=== PATIENT | female | born 1960 | race Caucasian/White ===

== ENCOUNTER 2018-06-13 10:10 | Inpatient (IN) ==
[2018-06-13 12:14] LABS: ALB/GLOB RATIO 1.2; ALBUMIN 3.8 g/dL (3.5-5.0); DIRECT BILIRUBIN 0.2 mg/dL (0.00-0.20); TOTAL BILIRUBIN 0.65 mg/dL (0.20-1.00); TOTAL PROTEIN 6.9 g/dL (6.3-8.3)
[2018-06-13] MEDS: SODIUM CHLORIDE 0.9% INJ SCH (12:30)
[2018-06-13] MEDS: PROTONIX IV SCH (12:30)
[2018-06-13] MEDS: DILAUDID IV PRN ×2 (12:30→19:07)
[2018-06-13] MEDS: NS 1,000 ML IV SCH (12:31)
[2018-06-13] MEDS: METRONIDAZOLE IV SCH ×2 (12:31→17:35)
[2018-06-13] MEDS: SODIUM CHLORIDE IV SCH ×2 (12:31→17:35)
[2018-06-13] MEDS: SODIUM CHLORIDE 0.9% INJ PRN ×2 (12:59→20:10)
[2018-06-13] MEDS: PHENERGAN IV PRN ×2 (12:59→20:10)
[2018-06-13] MEDS: LOVENOX SUBQ SCH (13:26)
[2018-06-13 13:33] LABS: AGAP 16; BUN 12 mg/dL (8-22); CALCIUM 9.4 mg/dL (8.8-10.2); CHLORIDE 99 mmol/L (98-107); COSMO 276; CREATININE 0.5 mg/dL (0.5-0.9); ESTIMATED GFR > 60; GLUCOSE 106 mg/dL (70-104); POTASSIUM 3.4 mmol/L (3.5-5.1); SODIUM 138 mmol/L (136-145); TCO2 23 mmol/L (25-35)
[2018-06-13] MEDS: LEVAQUIN 500 MG/D5W 500 MG/100 ML IVPB IV SCH (14:18)
--- NOTE | 2018-06-13 14:22 | HISTORY AND PHYSICAL ---
HISTORY OF PRESENT ILLNESS: Ms. Faulkner is a 58-year-old white female, a patient of Dr. Donato, who was seen at [facility] this morning for severe constipation and abdominal pain. She has a history of diverticulosis, and she is very tender. The pain started early this morning, and she has been diagnosed tentatively with diverticulitis by Jayjay, the nurse practitioner at [facility], and she was hospitalized. She had history of surgery for ovarian cyst, partial hysterectomy. She was seen by Dr. Fierro who told her about 6 months ago that she had severe diverticulosis. Ms. Faulkner has hypertension for last is 30 years. SOCIAL HISTORY: She has been a chronic smoker, smokes about a pack of cigarettes per day for the last 30 years. She does not drink. ALLERGIES: She is not allergic to any medications. REVIEW OF SYSTEMS: Other than severe abdominal pain and constipation, she denies history of vomiting, nausea, or diarrhea or rectal bleeding.Genitourinary: Negative. Endocrine: Negative. Breast: Negative. Neurological: Unremarkable. PHYSICAL EXAMINATION: VITAL SIGNS: Reveal temperature normal, pulse 88 per minute, respiratory rate 20 per minute, blood pressure 136/80. HEENT: Head normocephalic. Pupils: PERRLA. Fundus examination not done. ENT examination unremarkable NECK: Supple. JVP normal. LYMPHATIC: There is no evidence of lymphadenopathy, thyroid enlargement, pedal edema, calf tenderness, anemia, cyanosis, or clubbing. Pedal pulses well felt. BREAST: Normal chest. Normal inspection. LUNGS: Clear on auscultation. ABDOMEN: Nondistended ther is no evidence of guarding, rigidity, free fluid, masses. There is diffuse tenderness across the abdomen, especially on the left side and in the upper abdomen. No guarding, rigidity noted. RECTAL: Exam deferred. CENTRAL NERVOUS SYSTEM: Higher functions normal. Cranial nerves normal. Motor and sensory system examination unremarkable. Deep tendon reflexes normal. Plantars downgoing. Skull and spine examination normal for age. No cerebellar signs or signs of meningeal irritation on locomotor exam. SKIN: Exam unremarkable. CLINICAL IMPRESSION: Severe constipation and abdominal pain. Patient has acute diverticulitis. PLAN: To continue with the current management with IV Flagyl as well as Levaquin. We will continue to watch her closely. cc: MD Dewayne Mansfield MD [facility] MED[facility] CENTERTraci
--- NOTE | 2018-06-13 18:05 | Diag Imaging Result Doc PS360 ---
CT ABD/PELVIS W/IV CONT ONLY - 06/13/2018 INDICATION: Abdominal pain COMPARISON: 01/21/2018 FINDINGS: There is persistent or recurrent focal inflammation at the distalmost sigmoid colon. There is wall thickening here as well. There are numerous diverticula throughout the colon diffusely worst at the sigmoid. There is moderate constipation. No small bowel obstruction. Trace pelvic free fluid. No free air. Aside from a renal cyst, the abdominal organs are all normal. Uterus is absent. Urinary bladder and rectum are normal. There are moderate degenerative changes of the spine. No acute or suspicious bony lesion. IMPRESSION: Severe persistent or recurrent inflammation with wall thickening at the sigmoid colon. There is also severe constipation. This may represent diverticulitis or colon cancer. Recommend treatment and follow-up colonoscopy when the patient is better. This exam was performed using automated exposure control, adjustment of mA or kV according to patient size, and/or use of iterative reconstruction technique Electronically signed by Jah Rangel 06/13/2018 6:02 PM
[2018-06-13] MEDS ORDERED: ISOPTIN SR PO SCH (21:00)
[2018-06-13] MEDS: KLOR-CON POWDER PACKET PO SCH (21:22)
[2018-06-14] MEDS: NS 1,000 ML IV SCH ×3 (02:52→17:00)
[2018-06-14] MEDS: METRONIDAZOLE IV SCH ×4 (02:52→19:53)
[2018-06-14] MEDS: SODIUM CHLORIDE IV SCH ×4 (02:52→19:53)
[2018-06-14 06:31] LABS: BASO# 0.03 X1000 (0.0-0.2); BASO% 0.3 % (0.0-0.8); EOS# 0.11 X1000 (0.0-0.7); EOS% 1.2 % (0.0-10.0); HEMATOCRIT 35.5 % (37.0-47.0); HEMOGLOBIN 11.4 g/dL (12.0-16.0); LYMPH% 23.8 % (20.5-51.1); MCH 29.5 PG (27-31); MCHC 32.1 g/dL (33-37); MCV 91.7 FL (81-99); MONO# 0.87 X1000 (0.11-0.59); MONO% 9.4 % (1.7-9.3); MPV 10.2 FL (7.4-10.4); NEUT# 6.02 X1000 (1.4-6.5); NEUT% 65.3 % (42.2-75.2); PLT 357 X1000 (130-400); RBC 3.87 XMIL (4.2-5.4); RDW 13.3 % (11.5-14.5); WBC 9.23 X1000 (4.8-10.8)
[2018-06-14 07:02] LABS: AGAP 12; BUN 10 mg/dL (8-22); CALCIUM 8.6 mg/dL (8.8-10.2); CHLORIDE 105 mmol/L (98-107); COSMO 278; CREATININE 0.5 mg/dL (0.5-0.9); ESTIMATED GFR > 60; GLUCOSE 88 mg/dL (70-104); POTASSIUM 3.4 mmol/L (3.5-5.1); SODIUM 140 mmol/L (136-145); TCO2 23 mmol/L (25-35)
[2018-06-14] MEDS: PROTONIX IV SCH ×2 (09:16→17:27)
[2018-06-14] MEDS: HYDROCHLOROTHIAZIDE PO SCH (09:17)
[2018-06-14] MEDS: KLOR-CON POWDER PACKET PO SCH ×2 (09:17→21:41)
[2018-06-14] MEDS: MOBIC PO SCH (09:20)
[2018-06-14] MEDS: LOPRESSOR PO SCH ×2 (09:34→21:41)
[2018-06-14] MEDS: LOVENOX SUBQ SCH (12:03)
[2018-06-14] MEDS: POTASSIUM CHLORIDE 20 MEQ/SWI 20 MEQ/100 ML IVPB IV SCH ×2 (12:03→16:07)
[2018-06-14] MEDS: MILK OF MAGNESIA PO PRN (21:41)
[2018-06-14] MEDS: LEVAQUIN 500 MG/D5W 500 MG/100 ML IVPB IV SCH (21:41)
--- NOTE | 2018-06-14 22:19 | PROGRESS NOTE ---
DATE: 06/14/2018 SUBJECTIVE: A 58-year-old, white female admitted to the hospital on 06/03/2018 with abdominal pain on the left side associated with leukocytosis. CT findings were concerned about thickening of sigmoid colon. The patient is still in a lot of pain and constipation. REVIEW OF SYSTEMS: Reviewed. PAST MEDICAL HISTORY: Reviewed. PAST SURGICAL HISTORY: Reviewed. MEDICINES: Reviewed. ALLERGIES: Not known. OBJECTIVE: Vital signs: Temperature is 97.9 degrees, pulse is 65, blood pressure is 126/70, 94% on room air. HEENT Exam: Within normal limits. Neck: Supple. Chest: Clear. Cardiovascular: Heart sounds are regular. Abdomen: Belly is soft, tender in the left side. Neurologic: No neurological deficits. INVESTIGATIONS: CBC: White cell count 9.2, hematocrit 35, platelets 357,000. SMA 7: Potassium 3.4. CT findings were reviewed. Severe constipation. ASSESSMENT AND PLAN: 1. Sigmoid diverticulitis second episode. Continue on Levaquin and Flagyl. 2. IV fluids. 3. Hypokalemia. Replace the potassium. 4. Constipation. Patient is taking Colace and MiraLAX. Discontinue verapamil for blood pressure, changing it to metoprolol and DVT prophylaxis with Lovenox. 5. Gastrointestinal prophylaxis with IV Protonix and follow up on the labs in the morning and patient did have colonoscopy by Dr. Fierro last year, which is stable. We will review the reports and will follow up. LEVEL OF DOCUMENTATION: 35 minutes. cc: Dewayne Donato MD
[2018-06-15] MEDS: METRONIDAZOLE IV SCH ×3 (03:21→20:11)
[2018-06-15] MEDS: SODIUM CHLORIDE IV SCH ×3 (03:21→20:11)
[2018-06-15 06:18] LABS: BASO# 0.05 X1000 (0.0-0.2); BASO% 0.6 % (0.0-0.8); EOS# 0.27 X1000 (0.0-0.7); EOS% 3.1 % (0.0-10.0); HEMATOCRIT 36.5 % (37.0-47.0); HEMOGLOBIN 11.7 g/dL (12.0-16.0); LYMPH# 2.55 X1000 (1.2-3.4); LYMPH% 29.1 % (20.5-51.1); MCH 29.4 PG (27-31); MCHC 32.1 g/dL (33-37); MCV 91.7 FL (81-99); MONO# 0.79 X1000 (0.11-0.59); NEUT# 5.09 X1000 (1.4-6.5); NEUT% 58.2 % (42.2-75.2); PLT 388 X1000 (130-400); RBC 3.98 XMIL (4.2-5.4); WBC 8.75 X1000 (4.8-10.8)
[2018-06-15 06:44] LABS: AGAP 11; BUN 11 mg/dL (8-22); CALCIUM 8.3 mg/dL (8.8-10.2); CHLORIDE 105 mmol/L (98-107); COSMO 279; CREATININE 0.4 mg/dL (0.5-0.9); ESTIMATED GFR > 60; GLUCOSE 96 mg/dL (70-104); POTASSIUM 4.3 mmol/L (3.5-5.1); SODIUM 140 mmol/L (136-145); TCO2 24 mmol/L (25-35)
[2018-06-15] MEDS: KLOR-CON POWDER PACKET PO SCH ×2 (08:39→21:13)
[2018-06-15] MEDS: HYDROCHLOROTHIAZIDE PO SCH (08:40)
[2018-06-15] MEDS: LOPRESSOR PO SCH ×2 (08:40→21:13)
[2018-06-15] MEDS: PROTONIX IV SCH ×2 (08:41→11:30)
[2018-06-15] MEDS: MOBIC PO SCH (08:41)
[2018-06-15] MEDS: NS 1,000 ML IV SCH ×2 (08:48→11:32)
--- NOTE | 2018-06-15 09:38 | Diag Imaging Result Doc PS360 ---
EXAM: ABDOMEN FLAT/UPRIGHT 06/15/2018 HISTORY: pain TECHNIQUE: Flat and upright abdomen COMMENT: The bowel gas pattern is unremarkable. There is no evidence of organomegaly or mass. Compared to 01/21/2018 there is generally less small bowel gas. IMPRESSION: Nonspecific abdomen. Electronically signed by Jag Mccain 06/15/2018 9:36 AM
[2018-06-15] MEDS: LOVENOX SUBQ SCH (11:31)
--- NOTE | 2018-06-15 20:56 | PROGRESS NOTE ---
DATE: 06/15/2018 SUBJECT: Patient is still hurting on the left side. EXAM: Temperature is 98 degrees, blood pressure slightly running high.HEENT: Within normal limits. Neck: Supple. Chest: Clear. Heart: Sounds are regular. Belly: Is soft. Tender in the left side. No neurological deficits. INVESTIGATIONS: CBC is normal. SMA 7 was normal. Follow up on KUB improving the constipation. ASSESSMENT AND PLAN: 1. Recurrent diverticulitis. If no better consider surgical consult. Previous colonoscopy is negative by Dr. Fierro. Repeat the labs in the morning. Continue on IV fluids, IV antibiotics. 2. Hypertension. Change the verapamil to metoprolol 50 p.o. b.i.d. Discussed the plan of care with the family at bedside and will follow up on the clinical exam . LEVEL OF DOCUMENTATION: 25 minutes. cc: Dewayne Donato MD MTDD
[2018-06-15] MEDS: MILK OF MAGNESIA PO PRN (21:13)
[2018-06-15] MEDS: LEVAQUIN 500 MG/D5W 500 MG/100 ML IVPB IV SCH (21:13)
[2018-06-16] MEDS: METRONIDAZOLE IV SCH ×3 (04:37→20:31)
[2018-06-16] MEDS: SODIUM CHLORIDE IV SCH ×3 (04:37→20:31)
[2018-06-16 06:31] LABS: BASO# 0.06 X1000 (0.0-0.2); BASO% 0.8 % (0.0-0.8); EOS# 0.31 X1000 (0.0-0.7); EOS% 3.9 % (0.0-10.0); HEMATOCRIT 38.1 % (37.0-47.0); HEMOGLOBIN 12.1 g/dL (12.0-16.0); LYMPH# 2.35 X1000 (1.2-3.4); LYMPH% 29.8 % (20.5-51.1); MCHC 31.8 g/dL (33-37); MCV 91.4 FL (81-99); MONO# 0.71 X1000 (0.11-0.59); MPV 9.9 FL (7.4-10.4); NEUT# 4.46 X1000 (1.4-6.5); NEUT% 56.5 % (42.2-75.2); PLT 396 X1000 (130-400); RBC 4.17 XMIL (4.2-5.4); RDW 12.9 % (11.5-14.5); WBC 7.89 X1000 (4.8-10.8)
[2018-06-16 07:10] LABS: AGAP 9; BUN 8 mg/dL (8-22); CALCIUM 8.6 mg/dL (8.8-10.2); CHLORIDE 105 mmol/L (98-107); COSMO 278; CREATININE 0.5 mg/dL (0.5-0.9); ESTIMATED GFR > 60; GLUCOSE 101 mg/dL (70-104); POTASSIUM 4.2 mmol/L (3.5-5.1); SODIUM 140 mmol/L (136-145); TCO2 26 mmol/L (25-35)
[2018-06-16] MEDS: PROTONIX IV SCH ×2 (08:39→11:16)
[2018-06-16] MEDS: LOPRESSOR PO SCH ×2 (08:39→20:31)
[2018-06-16] MEDS: MOBIC PO SCH (08:39)
[2018-06-16] MEDS: HYDROCHLOROTHIAZIDE PO SCH (08:39)
[2018-06-16] MEDS: KLOR-CON POWDER PACKET PO SCH ×2 (08:40→20:32)
[2018-06-16] MEDS: SODIUM CHLORIDE 0.9% INJ SCH (08:40)
[2018-06-16] MEDS: NS 1,000 ML IV SCH ×2 (13:45→18:39)
[2018-06-16] MEDS: LOVENOX SUBQ SCH (13:45)
[2018-06-16] MEDS: DILAUDID IV PRN (18:18)
--- NOTE | 2018-06-16 18:34 | GENERAL SURGERY CONSULTATION ---
DATE: 06/16/2018 HISTORY OF PRESENT ILLNESS: This is a 58-year-old female, who was admitted to Dr. Donato's service with diverticulitis. She apparently had an episode back before the end of last year that was treated and recovered from this and was relatively asymptomatic in the meantime. She struggles with constipation most of her life. Takes stool softeners and laxatives for this. She presented now with left lower quadrant abdominal pain. Her symptoms have improved with IV antibiotics. She did not have much of an appetite. Bowel function has been normal otherwise. She has had a colonoscopy recently about 6 months ago with severe diverticulosis but no mucosal lesions. MEDICAL HISTORY: History of smoking. SURGICAL HISTORY: She has had a partial hysterectomy and a cystectomy of her ovary. REVIEW OF SYSTEMS: Ten point negative. FAMILY HISTORY: Negative for colon cancer. MEDICATIONS: Negative for anticoagulants. PHYSICAL EXAM: Vital Signs: Temperature 98.6, pulse 63, blood pressure 175/95, oxygen saturation 97%. General: She is alert. HEENT: No scleral icterus. No cervical mass. Cardiovascular: Normal rate. Pulmonary: No increased work of breathing. Abdomen: Soft. Tenderness in the left lower quadrant, but no peritonitis. Integument: Warm and dry. Psychiatric: Appropriate affect. Neurologic: No gross deficits. LABS: Have been reviewed. White count normal at 7, hematocrit 38, platelets 396. Creatinine 0.5. I have also seen her CT scan. She has sigmoid diverticulitis with no abscess or evidence of perforation. ASSESSMENT AND PLAN: A 58-year-old female with uncomplicated diverticulitis. Has been at least her second episode. I will allow her to continue antibiotics and bowel rest for this. If she resolves, we can follow her as an outpatient. If she remains somewhat symptomatic or has another episode we could consider elective sigmoid colectomy. Her risk of ostomy would be very high operating in the emergent urgent setting with ongoing inflammation. Hopefully, we can allow this to cool down and plan for a more elective procedure. I discussed with the patient. We will follow along while she is here. cc: MD Dewayne Beltran MD
[2018-06-16] MEDS: PHENERGAN IV PRN (20:27)
[2018-06-16] MEDS: LEVAQUIN 500 MG/D5W 500 MG/100 ML IVPB IV SCH (21:04)
--- NOTE | 2018-06-16 21:44 | PROGRESS NOTE ---
DATE: 06/16/2018 SUBJECTIVE: The patient is still in a little pain, slowly improving. OBJECTIVE: Vital signs: Temperature is 97 degrees, pulse 64. Vitals are stable. HEENT Exam: Within normal limits. Neck: Supple. No lymphadenopathy. Chest: Clear. Cardiovascular: Heart sounds are regular. Abdomen: Belly is soft, nontender. Good bowel sounds. Slightly tender. ASSESSMENT AND PLAN: 1. Recurrent sigmoid diverticulitis, slowly improving. Discussed with the patient, needs a surgical consult with Dr. Patrick. We will discontinue the pain medicines and continue IV antibiotics. Previous colonoscopy is unremarkable. We will follow up and if stable, we will discharge home in the morning after surgical consult. 2. Hypertension, currently. Watch on beta blockers and diuretics. Discontinued verapamil that is causing constipation. LEVEL OF DOCUMENTATION: 25 minutes. cc: Dewayne Donato MD
[2018-06-17] MEDS: NS 1,000 ML IV SCH (03:58)
[2018-06-17] MEDS: METRONIDAZOLE IV SCH (04:03)
[2018-06-17] MEDS: SODIUM CHLORIDE IV SCH (04:03)
[2018-06-17 07:29] VITALS: BP 160/85
[2018-06-17] MEDS: MOBIC PO SCH (09:01)
[2018-06-17] MEDS: HYDROCHLOROTHIAZIDE PO SCH (09:01)
[2018-06-17] MEDS: SODIUM CHLORIDE 0.9% INJ SCH (09:01)
[2018-06-17] MEDS: PROTONIX IV SCH (09:01)
[2018-06-17] MEDS: LOPRESSOR PO SCH (09:01)
[2018-06-17] MEDS: KLOR-CON POWDER PACKET PO SCH (09:08)
--- NOTE | 2018-06-19 08:30 | DISCHARGE SUMMARY ---
ADMISSION DATE: 06/13/2018 DISCHARGE DATE: 06/17/2018 DISCHARGING DIAGNOSIS: Acute abdominal pain due to sigmoid diverticulitis, recurrent. SECONDARY DIAGNOSES: 1. Migraine headaches. 2. Hypertension. 3. Osteoarthritis. 4. Acid reflux disease. CONSULTATIONS: Dr. Adam Patrick. BRIEF HISTORY: Please see the H and P that was done by Dr. Fierro. In brief, she is a 58-year-old white female with a known history of diverticulosis and second episode of diverticulitis, seen by Dr. Fierro with normal colonoscopy a few months ago. Came in with acute abdominal pain associated with a fever and leukocytosis. White cell count 15,000. HOSPITAL COURSE: Patient was given IV fluids and IV antibiotics with Levaquin and Flagyl. Followup clinical course was uneventful except hypokalemia. Replaced the potassium. The patient was seen by Dr. Patrick. The rest of the hospital course was uneventful. The patient is also constipated and I discontinued verapamil; that is one of the side effects. Changed to the beta blockers for the blood pressure control. At the time of discharge, patient is stable. LABORATORY DATA: CBC: White cell count 7.8, hematocrit 38, platelets 396,000. Sodium 140, potassium 4.2, chloride 105, BUN 8, creatinine 0.5, glucose 101. Liver function tests were normal. CT scan of the abdomen and pelvis: Severe persistent recurrent inflammation with wall thickening of the sigmoid colon, severe constipation, and diverticulitis. DISCHARGE INSTRUCTIONS: 1. Tramadol 50 p.o. b.i.d. 2. Discontinue verapamil. 3. Mobic 7.5 daily. 4. Potassium 20 mEq p.o. b.i.d. 5. Hydrochlorothiazide 50 daily. 6. Prilosec 20 daily. 7. Coreg 12.5 p.o. b.i.d. 8. MiraLAX 17 g daily. 9. Flagyl 500 t.i.d. for 7 days. 10. Probiotics 1 tablet daily. 11. Follow up in my office in 2 weeks as well as Dr. Patrick. cc: MD Moon Sibley MD Manish Arora, MD
== END 2018-06-17 09:54 | disposition home or self-care (01) | DRG 392 ==
LOC: DIRADM → OBSVTOIN 10:10 → 4N 11:11
PROVIDERS: ADMIT Internal Medicine; ATTEND Internal Medicine
CPT/HCPCS: 74019; 74020; 74177; 80048; 80076; 83690; 85025; 96365; 96366; 96367; 96372; 96375; 96376; A9270; C9113; G0378; J1170; J1650; J1956; J2550; J3480; J7030; Q9967; S0030; S0164

== ENCOUNTER 2018-11-25 13:02 | Observation (INO) ==
[2018-11-25] MEDS ORDERED: APRESOLINE IV PRN (13:51)
--- NOTE | 2018-11-25 14:15 | Diag Imaging Result Doc PS360 ---
EXAM: CHEST-2 VIEWS HISTORY: SOB TECHNIQUE: Chest two views COMPARISON: 07/01/2016 FINDINGS: The lungs are well expanded. The heart is not enlarged. The vessels are not distended. There are no infiltrates. No pleural effusions. There has been prior surgery to the lower neck. IMPRESSION: No acute abnormality. Electronically signed by Pepe Shetty 11/25/2018 2:12 PM
[2018-11-25 15:33] LABS: BASO# 0.07 X1000 (0.0-0.2); BASO% 0.8 % (0.0-0.8); EOS% 2.2 % (0.0-10.0); HEMATOCRIT 42.8 % (37.0-47.0); HEMOGLOBIN 14.2 g/dL (12.0-16.0); LYMPH# 2.75 X1000 (1.2-3.4); LYMPH% 29.6 % (20.5-51.1); MCH 29.6 PG (27-31); MCHC 33.2 g/dL (33-37); MCV 89.2 FL (81-99); MONO# 0.51 X1000 (0.11-0.59); MONO% 5.5 % (1.7-9.3); MPV 9.8 FL (7.4-10.4); NEUT# 5.75 X1000 (1.4-6.5); NEUT% 61.9 % (42.2-75.2); PLT 421 X1000 (130-400); RDW 12.9 % (11.5-14.5); WBC 9.28 X1000 (4.8-10.8)
[2018-11-25 15:37] LABS: INR 0.98; PROTIME 13.1 Seconds (11.0-16.0)
[2018-11-25 15:50] LABS: AGAP 13; BUN 13 mg/dL (8-22); CHLORIDE 104 mmol/L (98-107); COSMO 285; CREATININE 0.6 mg/dL (0.5-0.9); ESTIMATED GFR > 60; GLUCOSE 101 mg/dL (70-104); MAGNESIUM 2.1 mg/dL (1.5-2.7); POTASSIUM 3.5 mmol/L (3.5-5.1); SODIUM 143 mmol/L (136-145); TCO2 26 mmol/L (25-35)
--- NOTE | 2018-11-25 20:13 | Diag Imaging Result Doc PS360 ---
CT ANGIOGRAM RENAL ARTERIES - 11/25/2018 INDICATION: Hypertension TECHNIQUE: Axial CT images were obtained after administering intravenous contrast. Three-dimensional angiographic images were generated. COMPARISON: 07/29/2018 FINDINGS: The lung bases are clear and the heart size is normal. There is a stable right renal cyst. Otherwise the kidneys enhance normally. The liver, gallbladder, spleen, pancreas, and adrenals are normal. No bowel obstruction or inflammation. There is some mild scattered vascular disease in the abdominal aorta. No aneurysm or stenosis. The renal arteries are widely patent. There is significant diverticulosis of the descending and sigmoid colon. IMPRESSION: Normal exam of the renal arteries. This exam was performed using automated exposure control, adjustment of mA or kV according to patient size, and/or use of iterative reconstruction technique Electronically signed by Jah Rangel 11/25/2018 8:11 PM
[2018-11-25] MEDS: KLOR-CON POWDER PACKET PO SCH (20:29)
[2018-11-25] MEDS: COREG PO SCH (20:30)
[2018-11-25] MEDS: COZAAR PO SCH (20:30)
--- NOTE | 2018-11-25 21:43 | HISTORY AND PHYSICAL ---
CHIEF COMPLAINT: Severe headache and elevated blood pressure since yesterday. HISTORY OF PRESENT ILLNESS: She is a 58-year-old white female, a heavy smoker, who basically came in my office with a blood pressure of 220/110 with headache. Recently, she has changed her medication to Coreg from verapamil due to diverticulitis and related to constipation. She has been doing well for the last 9 months. She works in the [employer]. They have given her some hydralazine and referred her to me this morning. The blood pressure was substantially high. EKG was unremarkable. I have given clonidine without any significant drop, and she is very symptomatic. Admitted to the hospital for observation for accelerated hypertension, rule out secondary causes. I did not hear any abdominal bruit. Rule out renal artery stenosis, rule out endocrine causes. PAST MEDICAL HISTORY: 1. Hypertension. 2. Migraine headaches. 3. Nicotine dependency. 4. Hyperlipidemia. 5. Cystocele. 6. Diverticulosis. PAST SURGICAL HISTORY: Complete hysterectomy, cystocele repair, right breast fibroadenoma excision, C-spine surgery by Dr. Rios MEDICATIONS: Coreg 12.5 p.o. b.i.d., hydrochlorothiazide 50 mg daily, potassium 20 mEq daily, Mobic as needed, Prilosec 40 mg daily. ALLERGIES: Not known. 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 She lives in [place]. Smoking: Half a pack a day for 40 years. Socially drinks alcohol. FAMILY HISTORY: Father of PA at the age of 70. Mom of heart failure at the age of 85. Coronary artery disease. REVIEW OF SYSTEMS: HEENT: Slight headache. Vision problem. No earache. No sore throat. Neck: No neck pain, no goiter. Cardiopulmonary: No chest pain, shortness of breath, PND or orthopnea. GI: Slightly nauseous, not eating well. History of diverticulosis. No altered bowel habits. No bleeding per rectum. : No history of hesitancy, frequency, dysuria. No swelling of feet. No joint pain. Neurologic: No focal symptoms or weakness. PHYSICAL EXAMINATION: VITALS: Temperature is 98. Blood pressure is now coming down, now 148/100. CHEST: Clear. HEART: Sounds are regular. ABDOMEN: Belly is soft, nontender. Good bowel sounds. EXTREMITIES: No peripheral edema or cyanosis. NEUROLOGIC: No obvious neurological deficits. INVESTIGATIONS: CBC is normal. PT/INR is normal. SMA 7 is normal. Cardiac enzymes are normal. EKG nondiagnostic, nothing for ischemia. ASSESSMENT AND PLAN: A 58-year-old white female who basically came in with accelerated hypertension for the last 2 days, very symptomatic and impending stroke. Basically closely monitoring blood pressure and increasing the Coreg to 25 p.o. b.i.d. Added Cozaar, and will rule out renal artery stenosis. Rule out endocrine cause, 24-hour urine studies and reconcile home medications and will follow up. Discussed the plan of care with family. cc: Dewayne Donato MD MTDD
[2018-11-25] MEDS: ULTRAM PO SCH (23:26)
[2018-11-26] MEDS: ULTRAM PO SCH ×2 (08:30→20:44)
[2018-11-26] MEDS: COREG PO SCH ×2 (08:30→20:45)
[2018-11-26] MEDS: PRILOSEC PO SCH (08:30)
[2018-11-26] MEDS: HYDROCHLOROTHIAZIDE PO SCH (08:30)
[2018-11-26] MEDS: COZAAR PO SCH ×2 (08:31→20:46)
[2018-11-26] MEDS: MIRALAX PO SCH (08:31)
[2018-11-26] MEDS: KLOR-CON POWDER PACKET PO SCH ×2 (08:31→20:44)
[2018-11-26] MEDS: TYLENOL PO PRN ×2 (12:25→23:33)
--- NOTE | 2018-11-26 18:54 | PROGRESS NOTE ---
DATE: 11/26/2018 SUBJECTIVE: The patient complains of headache. Blood pressure is stable. No focal symptoms. PHYSICAL EXAMINATION: Vital Signs: Vitals are stable. HEENT: Exam within normal limits. chest: Chest is clear. heart: Heart sounds are regular. abdomen: Belly is soft, nontender. No obvious deficits noted. INVESTIGATIONS: Normal. CT renal angiograms are normal. Chest x-ray stable. ASSESSMENT AND PLAN: Accelerated hypertension, rule out secondary causes. No renal artery stenosis. [id number] urine studies are pending. Optimize the treatment with Cozaar 50 p.o. b.i.d., Coreg 25 p.o. b.i.d., hydrochlorothiazide 50 daily, potassium 20 mEq daily, and tramadol for pain. After finishing the test, we will discharge. Continue to monitor as an outpatient. Also, she is high risk for sleep apnea. We will also consider sleep studies if this blood pressure is out of control. LEVEL OF DOCUMENTATION: 25 minutes. cc: Dewayne Donato MD
[2018-11-27] MEDS: HYDROCHLOROTHIAZIDE PO SCH (09:27)
[2018-11-27] MEDS: ULTRAM PO SCH (09:27)
[2018-11-27] MEDS: KLOR-CON POWDER PACKET PO SCH (09:27)
[2018-11-27] MEDS: COREG PO SCH (09:28)
[2018-11-27] MEDS: PRILOSEC PO SCH (09:28)
[2018-11-27] MEDS: MIRALAX PO SCH (09:28)
[2018-11-27] MEDS: COZAAR PO SCH (09:28)
[2018-11-27 11:23] VITALS: BP 128/77
--- NOTE | 2018-11-27 16:34 | DISCHARGE SUMMARY ---
ADMISSION DATE: 11/25/2018 DISCHARGE DATE: 11/27/2018 DISCHARGING DIAGNOSIS: Accelerated hypertension with impending encephalopathy with headache. SECONDARY DIAGNOSES: 1. Migraine headaches. 2. Nicotine dependency. 3. Hyperlipidemia. 4. Diverticulosis. 5. History of cystocele. BRIEF HISTORY: Please see the H P that was done on 11/25/2018. In brief, she is a 58-year-old white female came my office with elevated blood pressure, 220/120 with a headache, vision problems for the last 2 days. The patient has been on hydrochlorothiazide and Coreg. The patient was given clonidine without significant improvement of headaches. Admitted to the hospital basically to control the blood pressure as well as work for secondary causes. HOSPITAL COURSE: Patient was given hydrochlorothiazide, Coreg, losartan, and hydralazine as needed. CT renal angiogram negative for renal artery stenosis. [id number] urine study for endocrine caused pheochromocytoma, hyperaldosteronism, and Mary syndrome were pending. Urine samples were collected. Results are pending. Blood pressure is doing very well. Patient was discharged home in a stable condition with blood pressure 128/77. LABS: CBC: White cell count 9.2, hematocrit 42, platelets 421,000, PT/INR is normal. Sodium 143, potassium 3.5, chloride 104, BUN 13, creatinine 0.6, glucose 101. Calcium, magnesium, troponin were normal. Chest x-ray was no acute abnormality. DISCHARGE INSTRUCTIONS: 1. Tramadol 50 b.i.d., potassium 20 mEq b.i.d., hydrochlorothiazide 50 mg daily, Prilosec 20 daily, Coreg 25 p.o. b.i.d., losartan 50 p.o. b.i.d., Mobic 15 daily, MiraLAX 17 g daily. 2. Follow up in my office next week for pending studies on 24 hour urine studies and will give an excuse to work until next Thursday. cc: Dewayne Donato MD
== END 2018-11-27 13:27 | disposition home or self-care (01) ==
LOC: DIRADM 13:02 → INTOOBSV 13:02 → EDIPHOLD 13:25 → 3N 16:19
PROVIDERS: ADMIT Internal Medicine; ATTEND Internal Medicine